=== PATIENT | female | born 1950 | race Caucasian/White ===

== ENCOUNTER 2019-08-08 11:02 | Emergency (ER) | payer MEDICARE ==
[~2019-08-08] VITALS: Ht 160 cm; Wt 76.8 kg
[~2019-08-08 11:02] MED LIST: DILT180C53 PO; INSU100I31 SUBCUT; LOSA100T57 PO; PIOG15TA8 PO; ROSU5TAB12 PO
[2019-08-08] MEDS ORDERED: wheelchair (12:55)
[2019-08-08] MEDS ORDERED: HYDR-3965 PO (12:55)
[2019-08-08] MEDS ORDERED: SENN-162 PO (12:55)
[2019-08-08] MEDS ORDERED: COMMODE (12:55)
[2019-08-08 13:25] VITALS: BP 182/87
[2019-08-09] MEDS ORDERED: HYDR-4383 PO (11:20)
[2019-08-09] MEDS ORDERED: SENN-162 PO (11:20)
[2019-08-10] MEDS ORDERED: ROSU20TA31 PO (11:09)
[2019-08-10] MEDS ORDERED: PIOG45TA65 PO (11:09)
== END 2019-08-08 13:26 | disposition home or self-care (01) ==
LOC: ER 11:03
DX: S82.841A Displaced bimalleolar fracture of right lower leg, initial encounter for closed fracture (principal); E11.9 Type 2 diabetes mellitus without complications; I25.10 Atherosclerotic heart disease of native coronary artery without angina pectoris; G62.9 Polyneuropathy, unspecified; Z88.0 Allergy status to penicillin; Z79.4 Long term (current) use of insulin; Z79.899 Other long term (current) drug therapy; W01.0XXA Fall on same level from slipping, tripping and stumbling without subsequent striking against object, initial encounter; Y93.89 Activity, other specified; Y92.89 Other specified places as the place of occurrence of the external cause; Y99.8 Other external cause status
CPT/HCPCS: 29515; 70450; 73610; 99284

== ENCOUNTER 2019-08-13 09:47 | Inpatient (IN) | payer MEDICARE ==
[2019-08-13] VITALS (16 sets, daily range): BP systolic 122–185; BP diastolic 60–105
[~2019-08-13] VITALS: Ht 160 cm; Wt 76.5 kg
[~2019-08-13 09:47] MED LIST changes: +HYDR-4383 PO; -PIOG15TA8 PO; +PIOG45TA65 PO; +ROSU20TA31 PO; -ROSU5TAB12 PO; +SENN-162 PO
[2019-08-13] MEDS ORDERED: famotidine 20mg tablet PO ONE (10:30)
[2019-08-13] MEDS ORDERED: clindamycin-Cleocin 900mg/D5W 50 ML IV ONE (10:30)
[2019-08-13] MEDS ORDERED: ringers solution, lacted 1,000 ML IV SCH ×2 (10:30→13:00)
[2019-08-13] MEDS ORDERED: INSU100I31 SQ (10:33)
[2019-08-13 11:06] LABS: BASOPHILS # (AUTO) 0.1 X10'3 (0-0.2); BASOPHILS % (AUTO) 0.6 % (0-1); EOSINOPHILS # (AUTO) 0.1 X10'3 (0-0.9); EOSINOPHILS % (AUTO) 1.4 % (0-6); LYMPHOCYTES # (AUTO) 1.5 X10'3 (1.1-4.8); LYMPHOCYTES % (AUTO) 17.3 % (21-51); MEAN CORPUSCULAR HEMOGLOBIN 28.4 PG (27.0-31.0); MEAN CORPUSCULAR HGB CONC 33.3 g/dL (33.0-36.5); MEAN CORPUSCULAR VOLUME 85.2 FL (78-98); MEAN PLATELET VOLUME 7.5 FL (7.4-10.4); MONOCYTES # (AUTO) 0.9 X10'3 (0-0.9); MONOCYTES % (AUTO) 10.1 % (2-12); NEUTROPHILS # (AUTO) 6.1 X10'3 (1.8-7.7); NEUTROPHILS % (AUTO) 70.6 % (42-75); PRE OP HEMATOCRIT 30.7 % (35.0-45.0); PRE OP PLATELET COUNT 323 X10'3 (140-440); RED CELL DISTRIBUTION WIDTH 14.2 % (11.5-14.5)
[2019-08-13 11:08] LABS: PRE OP HEMOGLOBIN 10.2 g/dL (12.0-16.0)
[2019-08-13 11:21] LABS: ALBUMIN 2.6 G/DL (3.4-5.0); ALBUMIN/GLOBULIN RATIO 0.5 (1.1-1.5); ALKALINE PHOSPHATASE 89 IU/L (46-116); BLOOD UREA NITROGEN 44 MG/DL (7-18); BUN/CREATININE RATIO 13.2 (6.6-38.0); CALCIUM 9.6 MG/DL (8.5-10.1); CHLORIDE 100 MMOL/L (99-107); CREATININE 3.33 MG/DL (0.40-0.90); PRE OP ALT 19 U/L (30-65); PRE OP ANION GAP 12 (8-16); PRE OP AST 15 U/L (10-37); PRE OP BILIRUB, TOTAL 0.4 MG/DL (0.0-1.0); PRE OP GLUCOSE 130 MG/DL (70-104); PRE OP PROTIME 10.3 SECONDS (9.0-12.0); PRE OP SODIUM 135 MMOL/L (135-145); TOTAL PROTEIN 8.1 G/DL (6.4-8.2); eGFR 14 ML/MIN
[2019-08-13] MEDS ORDERED: MIDAZolam 1mg/ml 10ml vial ONE (12:17)
[2019-08-13] MEDS ORDERED: fentaNYL/PF 50MCG/1 ML 2ML syringe ONE (12:18)
[2019-08-13] MEDS ORDERED: morphine 4 MG/ML inj SYRINge IV PRN ×2 (13:00)
[2019-08-13] MEDS ORDERED: labetalol 20mg/4ml (5mg/ml) syringe IV PRN (13:00)
[2019-08-13] MEDS ORDERED: hydrALAZINE 20mg/ml inj. IV PRN (13:00)
[2019-08-13] MEDS ORDERED: ondansetron/PF 4mg/2ml inj IV PRN (13:00)
[2019-08-13] MEDS ORDERED: fentaNYL/PF 50MCG/1 ML 2ML syringe IV PRN ×2 (13:00)
[2019-08-13] MEDS ORDERED: BUPIVAcaine/PF 2.5 mg/ml (0.25%) 30ml vial ONE (13:15)
[2019-08-13] MEDS ORDERED: morphine 10mg/ml inj. ONE (14:42)
--- NOTE | 2019-08-13 15:10 | NUR ---
Received from OR via BED, accompanied by Anesthesiologist DR BERNAL and report given by Anesthesiolgist. PATIENT A&OX4, DENIES PAIN, V/S WNL, NEUROVASCULAR CHECKS INTACT, 20G PIV TO RUE, SCD ON, RIGHT ANKLE SPLINT DRESSING CDI, F/C DRAINING CLEAR YELLOW URINE.
[2019-08-13] MEDS ORDERED: bisacodyl 10mg suppository rectal RC PRN (15:25)
[2019-08-13] MEDS ORDERED: HYDROmorphone inj. 0.5 MG/0.5 ML DISP.SYRIN IV PRN (15:25)
[2019-08-13] MEDS ORDERED: HYDROcodone/acetaminophen 10/325mg tab PO PRN (15:25)
[2019-08-13] MEDS ORDERED: diphenhydrAMINE 25mg capsule PO PRN ×2 (15:25)
[2019-08-13] MEDS ORDERED: magnesium hydroxide 30ml (MOM) UD suspension PO PRN (15:25)
[2019-08-13] MEDS ORDERED: acetaminophen 325mg tablet PO PRN (15:25)
[2019-08-13] MEDS ORDERED: dextrose ORAL solution 15 GM/59 ML bottle PO PRN ×2 (15:30)
[2019-08-13] MEDS ORDERED: dextrose 50%-water 50ml dispensing syringe IV PRN ×2 (15:30)
[2019-08-13] MEDS ORDERED: insulin Lispro (HumaLOG) vial - multi-dose SQ SCH (15:30)
[2019-08-13] MEDS ORDERED: glucagon, human recombinant 1mg kit SUBCUT PRN (15:30)
[2019-08-13] MEDS ORDERED: MESSAGE TO PHARMACY PO ONE (15:30)
--- NOTE | 2019-08-13 15:30 | NUR ---
received report from zach miller, in recovery
--- NOTE | 2019-08-13 16:10 | NUR ---
PATIENT A&OX4, DENIES PAIN, V/S WNL, NEUROVASCULAR CHECKS INTACT, 20G PIV TO RUE, SCD ON, RIGHT ANKLE SPLINT DRESSING CDI, F/C DRAINING CLEAR YELLOW URINE. PATIENT IS WIGGLING TOES NOW.. PATIENT TRANSFERED TO ORTHO WITH ALL BELONGINGS AND HOOKED UP TO MONITORS IN ROOM AND REPORT GIVEN TO AUTOMATIC COIL MACHINE OPERATOR WHO HAS TAKEN OVER PATIENT CARE.
--- NOTE | 2019-08-13 16:10 | NUR ---
pt arrived on floor awake in ortho bed
[2019-08-13] MEDS: ondansetron/PF 4mg/2ml inj IV PRN (17:33)
--- NOTE | 2019-08-13 18:31 | NUR ---
gave report to paul rojas
[2019-08-13] MEDS: clindamycin 600mg/D5W 50ml 50 ML IV SCH (20:22)
[2019-08-13] MEDS: sennosides 8.6mg tablet PO SCH (20:23)
[2019-08-13] MEDS: potassium Cl 20mEq in NS 1,000 ML IV SCH (20:24)
[2019-08-13] MEDS: HYDROcodone/acetaminophen 10/325mg tab PO PRN (20:25)
[2019-08-13] MEDS: insulin glargine (Lantus) pen - multi-dose SQ SCH (21:00)
[2019-08-13] MEDS ORDERED: sennosides 8.6mg tablet PO SCH (21:00)
[2019-08-14] VITALS (7 sets, daily range): BP systolic 123–175; BP diastolic 56–79
[2019-08-14] MEDS: HYDROcodone/acetaminophen 10/325mg tab PO PRN ×2 (02:08→05:46)
[2019-08-14] MEDS: clindamycin 600mg/D5W 50ml 50 ML IV SCH (02:09)
--- NOTE | 2019-08-14 06:25 | NUR ---
Problems reprioritized. Patient report given, questions answered & plan of care reviewed with DAVID.[email or web address].
--- NOTE | 2019-08-14 06:49 | NUR ---
Patient in room ORTHO 4012. I have received report from Gabriela OWENS and had the opportunity to ask questions and assume patient care.
[2019-08-14] MEDS: losartan 50mg tablet PO SCH (07:37)
[2019-08-14] MEDS: potassium Cl 20mEq in NS 1,000 ML IV SCH ×3 (07:38→21:57)
[2019-08-14] MEDS: diltiazem CD 180mg cap (once-daily) PO SCH (09:19)
--- NOTE | 2019-08-14 12:11 | NUR ---
DM/Joint replacement consult: Pt s/p R ankle fx repair hx DM A1C 8.0. Pt unable to wake during RD visit; written DM and high protein eds along w/ RD contact information left at bedside. PO pending on carb controlled diet post-op. LBM 08/12. Pt appears well-nourished. Will continue to monitor for additional protein needs post-op. Rec: 1. continue carb controlled diet 2. monitor for ONS needs 3. MVI for wound healing per MD approval 4. wt per rx Addendum: 08/14/19 at [address] Amended: Links added.
--- NOTE | 2019-08-14 18:25 | NUR ---
Problems reprioritized. Patient report given, questions answered & plan of care reviewed with Ashley OWENS.
[2019-08-14] MEDS: sennosides 8.6mg tablet PO SCH (20:17)
[2019-08-14] MEDS: insulin glargine (Lantus) pen - multi-dose SQ SCH (21:00)
[2019-08-14] MEDS: acetaminophen 325mg tablet PO PRN (22:42)
--- NOTE | 2019-08-15 03:41 | NUR ---
i heard pt scream. pt c/o pain. when pt was asked where the pain was, she said right leg and then left leg the next time. she kept changing. and also c/o numbness of bilat legs then soon after c/o bilat arms. pt moves all four extremeties (slow) and no sensation defecit found. repositioned pt and pain subsided. then pt started crying for her sister. i called her sister Megha and transferred phone call to pt.
[2019-08-15] MEDS ORDERED: traMADol 50MG tablet PO PRN (04:40)
[2019-08-15] MEDS: acetaminophen 325mg tablet PO PRN (04:49)
[2019-08-15 06:00] VITALS: BP 165/67
[2019-08-15 06:11] LABS: BASOPHILS # (AUTO) 0.1 X10'3 (0-0.2); BASOPHILS % (AUTO) 1.1 % (0-1); EOSINOPHILS # (AUTO) 0.1 X10'3 (0-0.9); HEMATOCRIT 24.6 % (35.0-45.0); HEMOGLOBIN 8.3 g/dl (12.0-16.0); LYMPHOCYTES # (AUTO) 1.1 X10'3 (1.1-4.8); LYMPHOCYTES % (AUTO) 10.1 % (21-51); MEAN CORPUSCULAR HEMOGLOBIN 28.8 PG (27.0-31.0); MEAN CORPUSCULAR HGB CONC 33.7 g/dL (33.0-36.5); MEAN CORPUSCULAR VOLUME 85.3 FL (78-98); MEAN PLATELET VOLUME 7.5 FL (7.4-10.4); MONOCYTES # (AUTO) 1.3 X10'3 (0-0.9); MONOCYTES % (AUTO) 12.5 % (2-12); NEUTROPHILS # (AUTO) 8.1 X10'3 (1.8-7.7); NEUTROPHILS % (AUTO) 75.3 % (42-75); PLATELET COUNT 293 X10'3 (140-440); RED BLOOD COUNT 2.88 X10'6 (4.20-5.60); RED CELL DISTRIBUTION WIDTH 13.9 % (11.5-14.5); WHITE BLOOD COUNT 10.7 X10'3 (4.5-11.0)
--- NOTE | 2019-08-15 06:18 | NUR ---
Problems reprioritized. Patient report given, questions answered & plan of care reviewed with GRACIELA MCGRATH.
--- NOTE | 2019-08-15 06:19 | NUR ---
Patient in room ORTHO 4012. I have received report from Ashley OWENS and had the opportunity to ask questions and assume patient care.
[2019-08-15 06:30] VITALS: BP 170/70
[2019-08-15 06:33] LABS: ALANINE AMINOTRANSFERASE 19 U/L (12-78); ALBUMIN 1.9 G/DL (3.4-5.0); ALBUMIN/GLOBULIN RATIO 0.4 (1.1-1.5); ALKALINE PHOSPHATASE 85 IU/L (46-116); ANION GAP 15 (8-16); ASPARTATE AMINO TRANSFERASE 18 U/L (10-37); BILIRUBIN,TOTAL 0.4 MG/DL (0.1-1.0); BLOOD UREA NITROGEN 43 MG/DL (7-18); CHLORIDE 103 MMOL/L (99-107); CREATININE 3.32 MG/DL (0.40-0.90); GLUCOSE 126 MG/DL (70-104); POTASSIUM 5.4 MMOL/L (3.5-5.1); SODIUM 136 MMOL/L (135-145); TOTAL CARBON DIOXIDE 18.3 MMOL/L (24-32); TOTAL PROTEIN 6.8 G/DL (6.4-8.2); eGFR 14 ML/MIN
[2019-08-15 06:58] VITALS: BP 182/79
[2019-08-15] MEDS: diltiazem CD 180mg cap (once-daily) PO SCH (07:09)
[2019-08-15] MEDS: losartan 50mg tablet PO SCH (07:10)
[2019-08-15 10:00] VITALS: BP 141/56
[2019-08-15] MEDS: potassium Cl 20mEq in NS 1,000 ML IV SCH (11:14)
--- NOTE | 2019-08-15 17:14 | NUR ---
Nutrition consult "low albumin": Pt/SO seen by PAUL for verbal high protein ed reinforcement. Pt ALOC not full able to respond to questions. Pt does agree to tuna salad sandwich at lunch tomorrow, [place] [place] yogurt BIDLD, chopped meats w/ gravy; dietary notified. Addendum: 08/15/19 at [address] Amended: Links added.
[2019-08-15 18:00] VITALS: BP 173/78
--- NOTE | 2019-08-15 18:26 | NUR ---
Problems reprioritized. Patient report given, questions answered & plan of care reviewed with Prasanth OWENS.
[2019-08-15] MEDS: sennosides 8.6mg tablet PO SCH (19:45)
[2019-08-15] MEDS: insulin glargine (Lantus) pen - multi-dose SQ SCH (21:00)
[2019-08-15 22:00] VITALS: BP 156/69
--- NOTE | 2019-08-15 22:50 | NUR ---
pt has random essential tremors, family reports this is not normal for patient. tremors are not all the time, but per family she is "jumping" while she's sleeping. patient unable to dictate if normal or not. no sxs distress. will continue to monitor. pt has flat affect, doesn't make eye contact. answers all questions appropriately. Addendum: 08/15/19 at 2303 by Arnold Mejia RN Amended: Links added.
--- NOTE | 2019-08-16 05:53 | NUR ---
Jael (sister) ok to have info. correct cell number [phone]. answered questions about plan for discharge possibilities. family requests [facility] as first choice and [facility] SN[facility].
--- NOTE | 2019-08-16 06:38 | NUR ---
reported to days. noted pt sister anticipates discharge to rehab today
[2019-08-16 07:39] LABS: HEMATOCRIT 26.4 % (35.0-45.0); HEMOGLOBIN 8.7 g/dl (12.0-16.0); MEAN CORPUSCULAR HEMOGLOBIN 28.2 PG (27.0-31.0); MEAN CORPUSCULAR HGB CONC 33.1 g/dL (33.0-36.5); MEAN CORPUSCULAR VOLUME 85.3 FL (78-98); MEAN PLATELET VOLUME 7.2 FL (7.4-10.4); PLATELET COUNT 336 X10'3 (140-440); RED BLOOD COUNT 3.09 X10'6 (4.20-5.60); RED CELL DISTRIBUTION WIDTH 14.3 % (11.5-14.5); WHITE BLOOD COUNT 9.7 X10'3 (4.5-11.0)
[2019-08-16 07:54] LABS: ANION GAP 12 (8-16); BLOOD UREA NITROGEN 43 MG/DL (7-18); BUN/CREATININE RATIO 13.8 (6.6-38.0); CALCIUM 9.3 MG/DL (8.5-10.1); CHLORIDE 105 MMOL/L (99-107); CREATININE 3.12 MG/DL (0.40-0.90); GLUCOSE 114 MG/DL (70-104); POTASSIUM 4.7 MMOL/L (3.5-5.1); SODIUM 137 MMOL/L (135-145); TOTAL CARBON DIOXIDE 19.9 MMOL/L (24-32); eGFR 15 ML/MIN
[2019-08-16 07:55] LABS: ALANINE AMINOTRANSFERASE 25 U/L (12-78); ALBUMIN 1.9 G/DL (3.4-5.0); ALBUMIN/GLOBULIN RATIO 0.4 (1.1-1.5); ALKALINE PHOSPHATASE 122 IU/L (46-116); ASPARTATE AMINO TRANSFERASE 25 U/L (10-37); BILIRUBIN,TOTAL 0.3 MG/DL (0.1-1.0); TOTAL PROTEIN 6.9 G/DL (6.4-8.2)
[2019-08-16] MEDS: diltiazem CD 180mg cap (once-daily) PO SCH (08:13)
[2019-08-16] MEDS: acetaminophen 325mg tablet PO PRN (08:14)
[2019-08-16] MEDS: losartan 50mg tablet PO SCH (08:14)
[2019-08-16 10:00] VITALS: BP 169/73
--- NOTE | 2019-08-16 11:27 | NUR ---
Patient in room ORTHO 4012. I have received report from Caitlin OWENS and had the opportunity to ask questions and assume patient care.
--- NOTE | 2019-08-16 11:27 | NUR ---
Problems reprioritized. Patient report given, questions answered & plan of care reviewed with GRACIELA Jones.
[2019-08-16] MEDS: ondansetron/PF 4mg/2ml inj IV PRN (13:55)
--- NOTE | 2019-08-16 15:30 | NUR ---
Called report to [facility], IV taken out patient tolerated well. NWB steady to the wheelchair.
== END 2019-08-16 16:05 | DRG 493 ==
LOC: PAS 09:47 → ORTHO 4S 16:57
PROVIDERS: ADMIT Orthopaedic Surgery; ATTEND Orthopaedic Surgery
PROC: 0QSG04Z Reposition Right Tibia with Internal Fixation Device, Open Approach (ICD-10-PCS; 2019-08-13)
PROC: 0QSJ04Z Reposition Right Fibula with Internal Fixation Device, Open Approach (ICD-10-PCS; principal; 2019-08-13 12:10)
DX: S82.841A Displaced bimalleolar fracture of right lower leg, initial encounter for closed fracture (principal); D62 Acute posthemorrhagic anemia; N18.4 Chronic kidney disease, stage 4 (severe); M81.0 Age-related osteoporosis without current pathological fracture; I12.9 Hypertensive chronic kidney disease with stage 1 through stage 4 chronic kidney disease, or unspecified chronic kidney disease; E11.22 Type 2 diabetes mellitus with diabetic chronic kidney disease; E66.9 Obesity, unspecified; X58.XXXA Exposure to other specified factors, initial encounter; M32.9 Systemic lupus erythematosus, unspecified; I25.10 Atherosclerotic heart disease of native coronary artery without angina pectoris; E11.42 Type 2 diabetes mellitus with diabetic polyneuropathy; E78.5 Hyperlipidemia, unspecified; Z90.49 Acquired absence of other specified parts of digestive tract; Z88.0 Allergy status to penicillin; Z68.29 Body mass index [BMI] 29.0-29.9, adult; Z79.899 Other long term (current) drug therapy; Y93.89 Activity, other specified; Y92.89 Other specified places as the place of occurrence of the external cause; Y99.8 Other external cause status
CPT/HCPCS: 36415; 80053; 82948; 83036; 85025; 85027; 85610; 85730; 93005; 97161; 97530; 97535; A4215; A6223; A6449; A7000; C1713; C1758; G0378; J1815; J2250; J2270; J2405; J3010; J3480; J3490; J7120; Q0163

== ENCOUNTER 2021-02-25 17:10 | Emergency (ER) | payer MEDICARE ==
[~2021-02-25] VITALS: Ht 160 cm; Wt 64.1 kg
[~2021-02-25 17:10] MED LIST changes: -DILT180C53 PO; +DILT240C51 PO; +DOXA2TAB13 PO; +HYDR-4069 PO; -HYDR-4383 PO; +INSU100I31 SQ; -INSU100I31 SUBCUT; +LABE200T5 PO; -LOSA100T57 PO; +NOR5T PO; -PIOG45TA65 PO; -ROSU20TA31 PO; +ROSU40TA22 PO; -SENN-162 PO
[2021-02-25] MEDS ORDERED: ondansetron/PF 4mg/2ml inj IV ONE (17:30)
[2021-02-25] MEDS ORDERED: morphine 4 MG/ML inj SYRINge IV PRN (17:30)
[2021-02-25 17:49] LABS: BASOPHILS # (AUTO) 0.1 X10'3 (0-0.2); BASOPHILS % (AUTO) 1.2 % (0-1); EOSINOPHILS # (AUTO) 0.2 X10'3 (0-0.9); EOSINOPHILS % (AUTO) 2.2 % (0-6); HEMATOCRIT 33.2 % (35.0-45.0); HEMOGLOBIN 11.4 g/dl (12.0-16.0); LYMPHOCYTES # (AUTO) 2.3 X10'3 (1.1-4.8); LYMPHOCYTES % (AUTO) 30.3 % (21-51); MEAN CORPUSCULAR HEMOGLOBIN 30.1 PG (27.0-31.0); MEAN CORPUSCULAR HGB CONC 34.2 g/dL (33.0-36.5); MEAN PLATELET VOLUME 7.5 FL (7.4-10.4); MONOCYTES # (AUTO) 0.5 X10'3 (0-0.9); MONOCYTES % (AUTO) 6.8 % (2-12); NEUTROPHILS # (AUTO) 4.6 X10'3 (1.8-7.7); NEUTROPHILS % (AUTO) 59.5 % (42-75); PLATELET COUNT 275 X10'3 (140-440); RED BLOOD COUNT 3.77 X10'6 (4.20-5.60); RED CELL DISTRIBUTION WIDTH 14.4 % (11.5-14.5); WHITE BLOOD COUNT 7.7 X10'3 (4.5-11.0)
[2021-02-25 18:18] LABS: ALANINE AMINOTRANSFERASE 70 U/L (12-78); ALBUMIN 2.7 G/DL (3.4-5.0); ALBUMIN/GLOBULIN RATIO 0.6 (1.1-1.5); ALKALINE PHOSPHATASE 94 IU/L (46-116); ANION GAP 13 (8-16); ASPARTATE AMINO TRANSFERASE 47 U/L (10-37); BILIRUBIN,TOTAL 0.6 MG/DL (0.1-1.0); BLOOD UREA NITROGEN 45 MG/DL (7-18); BUN/CREATININE RATIO 6.7 (6.6-38.0); CALCIUM 9.2 MG/DL (8.5-10.1); CHLORIDE 97 MMOL/L (99-107); CREATININE 6.71 MG/DL (0.40-0.90); GLUCOSE 196 MG/DL (70-104); LIPASE 508 U/L (73-393); POTASSIUM 3.2 MMOL/L (3.5-5.1); SODIUM 134 MMOL/L (135-145); TOTAL CARBON DIOXIDE 23.7 MMOL/L (24-32); TOTAL PROTEIN 7.2 G/DL (6.4-8.2); TROPONIN I < 0.04 NG/ML (0.0-0.05); eGFR 6 ML/MIN
[2021-02-25 18:48] LABS: CLARITY,URINE SLIGHTLY CLOUDY (Clear); COLOR,URINE YELLOW (Yellow); GLUCOSE, URINE 500 mg/dl (Neg); KETONES,URINE NEGATIVE (Neg); LEUKOCYTE ESTERASE ,URINE NEGATIVE (Neg); NITRITES, URINE NEGATIVE (Neg); OCCULT BLOOD,URINE TRACE-INTACT (Neg); PH,URINE 7.5 (4.8-8.0); PROTEIN,URINE >=300 mg/dl (Neg); UROBILINOGEN,URINE 0.2 E.U/dL (0.2-1.0)
[2021-02-25] MEDS ORDERED: hydrALAZINE 20mg/ml inj. IV ONE (18:50)
[2021-02-25 18:57] LABS: UA COLLECTION TYPE CLN CATCH MIDSTREAM
[2021-02-25 18:58] LABS: WBC,URINE 0-4 /HPF (0-4)
[2021-02-25 18:59] LABS: RBC,URINE 0-2 /HPF (0-2); SQUAMOUS EPITHELIAL CELL,UR MANY /LPF (FEW)
[2021-02-25 19:00] LABS: MUCUS STRANDS FEW /LPF (Neg); TRANSITIONAL EPI CELLS,URINE FEW /HPF
[2021-02-25 19:01] LABS: BACTERIA,URINE FEW /HPF (Neg)
[2021-02-25] MEDS ORDERED: potassium Cl 20 mEq SR tablet PO STA (19:30)
[2021-02-25 19:47] VITALS: BP 183/83
== END 2021-02-25 19:48 | disposition home or self-care (01) ==
LOC: ER 17:10
DX: R10.84 Generalized abdominal pain (principal); E87.6 Hypokalemia; K21.9 Gastro-esophageal reflux disease without esophagitis; E11.42 Type 2 diabetes mellitus with diabetic polyneuropathy; I12.0 Hypertensive chronic kidney disease with stage 5 chronic kidney disease or end stage renal disease; E11.22 Type 2 diabetes mellitus with diabetic chronic kidney disease; N18.6 End stage renal disease; Z88.0 Allergy status to penicillin; Z79.4 Long term (current) use of insulin; Z79.899 Other long term (current) drug therapy
CPT/HCPCS: 36415; 74176; 80053; 81001; 83605; 83690; 84145; 84484; 85025; 87040; 93005; 96374; 96375; 99285; J0360; J2270; J2405

== ENCOUNTER 2021-06-04 09:14 | Emergency (ER) | payer MEDICARE ==
[~2021-06-04] VITALS: Ht 157.5 cm; Wt 63.6 kg
[2021-06-04 09:44] LABS: BASOPHILS # (AUTO) 0.1 X10'3 (0-0.2); EOSINOPHILS # (AUTO) 0.2 X10'3 (0-0.9); HEMATOCRIT 32.7 % (35.0-45.0); HEMOGLOBIN 11.5 g/dl (12.0-16.0); LYMPHOCYTES # (AUTO) 1.7 X10'3 (1.1-4.8); LYMPHOCYTES % (AUTO) 21.2 % (21-51); MEAN CORPUSCULAR HEMOGLOBIN 31.6 PG (27.0-31.0); MEAN CORPUSCULAR HGB CONC 35.1 g/dL (33.0-36.5); MEAN CORPUSCULAR VOLUME 90.1 FL (78-98); MONOCYTES # (AUTO) 0.6 X10'3 (0-0.9); MONOCYTES % (AUTO) 7.8 % (2-12); NEUTROPHILS # (AUTO) 5.5 X10'3 (1.8-7.7); PLATELET COUNT 297 X10'3 (140-440); RED BLOOD COUNT 3.63 X10'6 (4.20-5.60); RED CELL DISTRIBUTION WIDTH 13.3 % (11.5-14.5); WHITE BLOOD COUNT 8.1 X10'3 (4.5-11.0)
[2021-06-04 10:08] LABS: ALANINE AMINOTRANSFERASE 21 U/L (12-78); ALBUMIN 2.8 G/DL (3.4-5.0); ALBUMIN/GLOBULIN RATIO 0.7 (1.1-1.5); ALKALINE PHOSPHATASE 81 IU/L (46-116); ANION GAP 12 (8-16); ASPARTATE AMINO TRANSFERASE 16 U/L (10-37); BILIRUBIN,TOTAL 0.4 MG/DL (0.1-1.0); BLOOD UREA NITROGEN 44 MG/DL (7-18); BUN/CREATININE RATIO 6.8 (6.6-38.0); CALCIUM 9.2 MG/DL (8.5-10.1); CHLORIDE 100 MMOL/L (99-107); CREATININE 6.49 MG/DL (0.40-0.90); GLUCOSE 118 MG/DL (70-104); MAGNESIUM 2.1 MG/DL (1.5-2.4); SODIUM 138 MMOL/L (135-145); TOTAL CARBON DIOXIDE 25.8 MMOL/L (24-32); eGFR 6 ML/MIN
[2021-06-04 10:38] LABS: POTASSIUM 2.7 MMOL/L (3.5-5.1)
[2021-06-04] MEDS ORDERED: potassium Cl 20 mEq SR tablet PO ONE (10:45)
[2021-06-04] MEDS ORDERED: POTA10TA19 PO (11:13)
[2021-06-04 11:44] VITALS: BP 210/97
== END 2021-06-04 11:36 | disposition home or self-care (01) ==
LOC: ER 09:14
DX: E87.6 Hypokalemia (principal); R53.1 Weakness; R55 Syncope and collapse; R42 Dizziness and giddiness; I12.0 Hypertensive chronic kidney disease with stage 5 chronic kidney disease or end stage renal disease; E11.22 Type 2 diabetes mellitus with diabetic chronic kidney disease; N18.6 End stage renal disease; K21.9 Gastro-esophageal reflux disease without esophagitis; E11.42 Type 2 diabetes mellitus with diabetic polyneuropathy; Z99.2 Dependence on renal dialysis; Z88.0 Allergy status to penicillin; Z79.4 Long term (current) use of insulin; Z79.899 Other long term (current) drug therapy
CPT/HCPCS: 36415; 71045; 80053; 83735; 83880; 84484; 85025; 93005; 99285

== ENCOUNTER 2021-07-22 08:23 | Day surgery (SDC) | payer OTHER ==
[~2021-07-22] VITALS: Ht 157.5 cm; Wt 63.5 kg
[2021-07-22] VITALS (8 sets, daily range): BP systolic 134–156; BP diastolic 54–67
[~2021-07-22 08:23] MED LIST changes: +AMIT10TA6 PO; +ATOR20TA66 PO; +CLON0.1T2 PO; +CLOP75TA34 PO; -DILT240C51 PO; +DOCU100C40 PO; -DOXA2TAB13 PO; +FOLI0.8T19 PO; -HYDR-4069 PO; -INSU100I31 SQ; -LABE200T5 PO; +METO-395 PO; +METO5TAB85 PO; +PANT40TA54 PO; +POTA10TA36 PO; -ROSU40TA22 PO; +TRAM50TA2 PO; +polyethylene glycol 3350 pkt PO
[2021-07-22] MEDS ORDERED: normal saline 1000ml 1,000 ML IV PRN (08:35)
[2021-07-22] MEDS ORDERED: DOCU-342 PO (08:37)
[2021-07-22] MEDS ORDERED: METR-159 PO (08:37)
[2021-07-22] MEDS ORDERED: ASPI-1265 PO (08:37)
[2021-07-22] MEDS ORDERED: AMLO5TAB16 PO (08:37)
[2021-07-22] MEDS ORDERED: PHEN20SP2 PO (08:43)
[2021-07-22] MEDS ORDERED: GABA100C PO (08:43)
[2021-07-22] MEDS ORDERED: CLOP75TA15 PO (08:43)
[2021-07-22] MEDS ORDERED: BENZ1LOZ61 PO (08:43)
[2021-07-22] MEDS ORDERED: HEPARIN SUBCUT (08:43)
[2021-07-22] MEDS ORDERED: POLY17PO10 PO (08:43)
[2021-07-22] MEDS ORDERED: ACET-890 PO (08:48)
[2021-07-22] MEDS ORDERED: BACI1TAB2 (08:48)
[2021-07-22] MEDS ORDERED: INSU100C10 SQ (08:48)
[2021-07-22] MEDS ORDERED: PRE5T PO (08:48)
[2021-07-22] MEDS ORDERED: INSU100V9 SQ (08:48)
[2021-07-22] MEDS ORDERED: PANT-47 PO (08:48)
[2021-07-22] MEDS ORDERED: heparin 1,000unit/ml 10ml vial 10 ML ONE (09:02)
[2021-07-22] MEDS ORDERED: LIDOcaine 1%/PF 5ML 10 MG/ML VIAL ONE (09:02)
[2021-07-22] MEDS ORDERED: fentaNYL/PF 50MCG/1 ML 2ML syringe ONE (09:02)
[2021-07-22] MEDS ORDERED: midazolam 1 mg/ML 2ml injection ONE (09:02)
[2021-07-22 09:23] LABS: ALBUMIN 1.8 G/DL (3.4-5.0); ANION GAP 10 (8-16); BLOOD UREA NITROGEN 20 MG/DL (7-18); CALCIUM 8.2 MG/DL (8.5-10.1); CHLORIDE 103 MMOL/L (99-107); CREATININE 6.68 MG/DL (0.40-0.90); GLUCOSE 144 MG/DL (70-104); POTASSIUM 3.6 MMOL/L (3.5-5.1); SODIUM 141 MMOL/L (135-145); TOTAL CARBON DIOXIDE 27.7 MMOL/L (24-32); eGFR 6 ML/MIN
== END 2021-07-22 12:40 ==
LOC: SSTAY O 08:23
PROVIDERS: ATTEND Radiology Diagnostic Radiology
DX: E11.22 Type 2 diabetes mellitus with diabetic chronic kidney disease (principal); I12.0 Hypertensive chronic kidney disease with stage 5 chronic kidney disease or end stage renal disease; N18.6 End stage renal disease; Z88.0 Allergy status to penicillin; Z79.4 Long term (current) use of insulin; Z79.899 Other long term (current) drug therapy; Z79.82 Long term (current) use of aspirin; Z82.49 Family history of ischemic heart disease and other diseases of the circulatory system; Z83.3 Family history of diabetes mellitus
CPT/HCPCS: 36415; 36558; 76937; 77001; 80048; 99152; 99153; C1750; C1769; C1894; J1644; J2250; J3010; A9270

== ENCOUNTER 2021-07-30 12:34 | Emergency (ER) | payer OTHER, MEDICARE ==
[~2021-07-30] VITALS: Ht 157.5 cm; Wt 63.6 kg
[~2021-07-30 12:34] MED LIST changes: +ACET-890 PO; +AMLO5TAB16 PO; +ASPI-1265 PO; -ATOR20TA66 PO; +BACI1TAB2; +BENZ1LOZ61 PO; +CLOP75TA15 PO; -CLOP75TA34 PO; +DOCU-342 PO; -DOCU100C40 PO; +GABA100C PO; +HEPARIN SUBCUT; +INSU100C10 SQ; +INSU100V9 SQ; -METO-395 PO; -METO5TAB85 PO; +METR-159 PO; -NOR5T PO; +PANT-47 PO; -PANT40TA54 PO; +PHEN20SP2 PO; +POLY17PO10 PO; -POTA10TA36 PO; +PRE5T PO; -TRAM50TA2 PO; -polyethylene glycol 3350 pkt PO
--- NOTE | 2021-07-30 14:14 | NUR ---
PT YELLING IN ROOM SHE WANTS TO GO HOME BY AMBULANCE. PT AWAITING MD. PT WANTS TO CALL BUT CANNOT REMEMBER HIS NUMBER.
--- NOTE | 2021-07-30 14:18 | NUR ---
CALLED AND LEFT MESSAGE FOR , PT DAUGHTER IN CONTACT LIST. PT SPEAKING TO DAUGHTER NOW AND DEMANDING TO GO HOME.
[2021-07-30 14:55] LABS: BASOPHILS # (AUTO) 0.1 X10'3 (0-0.2); BASOPHILS % (AUTO) 1.1 % (0-1); EOSINOPHILS # (AUTO) 0.4 X10'3 (0-0.9); EOSINOPHILS % (AUTO) 3.3 % (0-6); HEMOGLOBIN 9.4 g/dl (12.0-16.0); LYMPHOCYTES # (AUTO) 2.4 X10'3 (1.1-4.8); LYMPHOCYTES % (AUTO) 20.5 % (21-51); MEAN CORPUSCULAR HEMOGLOBIN 30.7 PG (27.0-31.0); MEAN CORPUSCULAR HGB CONC 32.3 g/dL (33.0-36.5); MEAN CORPUSCULAR VOLUME 95.1 FL (78-98); MEAN PLATELET VOLUME 7.2 FL (7.4-10.4); MONOCYTES % (AUTO) 8.6 % (2-12); NEUTROPHILS # (AUTO) 7.9 X10'3 (1.8-7.7); NEUTROPHILS % (AUTO) 66.5 % (42-75); PLATELET COUNT 370 X10'3 (140-440); RED BLOOD COUNT 3.05 X10'6 (4.20-5.60); RED CELL DISTRIBUTION WIDTH 15.6 % (11.5-14.5); WHITE BLOOD COUNT 11.9 X10'3 (4.5-11.0)
--- NOTE | 2021-07-30 14:56 | NUR ---
Spoke with Gabriela at [facility], patient was not tolerating HD and needs to be transitioned back to PD, Dr. Easton aware of patient in ER, notified primary nurse
[2021-07-30 15:12] LABS: ALANINE AMINOTRANSFERASE 30 U/L (12-78); ALBUMIN 2.4 G/DL (3.4-5.0); ALBUMIN/GLOBULIN RATIO 0.5 (1.1-1.5); ALKALINE PHOSPHATASE 115 IU/L (46-116); ANION GAP 15 (8-16); ASPARTATE AMINO TRANSFERASE 24 U/L (10-37); BILIRUBIN,TOTAL 0.4 MG/DL (0.1-1.0); BLOOD UREA NITROGEN 32 MG/DL (7-18); BUN/CREATININE RATIO 5.3 (6.6-38.0); CALCIUM 8.6 MG/DL (8.5-10.1); CHLORIDE 101 MMOL/L (99-107); GLUCOSE 209 MG/DL (70-104); MAGNESIUM 2.1 MG/DL (1.5-2.4); PHOSPHORUS 3.8 MG/DL (2.3-4.5); POTASSIUM 3.3 MMOL/L (3.5-5.1); SODIUM 140 MMOL/L (135-145); TOTAL PROTEIN 7.3 G/DL (6.4-8.2); eGFR 7 ML/MIN
[2021-07-30] MEDS ORDERED: NOVLG SQ (15:16)
[2021-07-30] MEDS ORDERED: METO-395 PO (15:16)
[2021-07-30] MEDS ORDERED: ATOR-2 PO (15:16)
[2021-07-30] MEDS ORDERED: magnesium 4gm in 100ml NS 100 ML IV PRN (15:30)
[2021-07-30] MEDS ORDERED: magnesium Cl slow-release 64mg tablet PO PRN (15:30)
[2021-07-30] MEDS ORDERED: ondansetron/PF 4mg/2ml inj IV PRN (15:30)
[2021-07-30] MEDS ORDERED: magnesium 2GM in 50ml NS 50 ML IV PRN (15:30)
[2021-07-30] MEDS ORDERED: normal saline 1000ml 1,000 ML IV SCH (15:30)
[2021-07-30] MEDS ORDERED: potassium Cl 40MEQ/1/2NS 520ml 520 ML IV PRN ×2 (15:30)
[2021-07-30] MEDS ORDERED: potassium Cl 20 mEq SR tablet PO PRN ×2 (15:30)
[2021-07-30] MEDS ORDERED: acetaminophen 325mg tablet PO PRN ×2 (15:30)
--- NOTE | 2021-07-30 15:47 | NUR ---
AT BEDSIDE ASKING FOR PT TO HAVE FOOD FOR PT. WILL SEND MEAL ONCE DIET ORDERED.
--- NOTE | 2021-07-30 15:50 | NUR ---
FAXED FOR A RENAL DIET FOR PT NOW.
--- NOTE | 2021-07-30 16:42 | NUR ---
PT SCREAMING HELP IN ROOM. WHEN ASKED WHATS WRONG, PT SCREAMS I WANT FOOD. EDUCATED ABOUT FOOD IN THE ED. I FAXED AN ORDER DOWN FOR A RENAL DIET THAT HASNT ARRIVED. I WILL FAX AGAIN.
--- NOTE | 2021-07-30 17:15 | NUR ---
DR CARDONA SPOKE WITH PT AND STATED PT DOES NOT MEET CRITERIA FOR ADMISSION. PT AND AGREE THAT THE PT WANTS TO GO HOME. WENT HOME TO [facility] PT HOME W/C AND WILL BE BACK AROUND 1800. DR DIOP PAGED AND LET KNOW OF [facility] AND PT WISHES. STATED WILL REVIEW CHARTING FROM DR CARDONA AND CALL BACK ABOUT POC. ADVISED DR DIOP PT WILL WANT TO LEAVE AMA IF NO DISCHARGE ORDERED.
[2021-07-30 17:37] LABS: CLARITY,URINE CLOUDY (Clear); COLOR,URINE YELLOW (Yellow); GLUCOSE, URINE 500 mg/dl (Neg); KETONES,URINE NEGATIVE (Neg); LEUKOCYTE ESTERASE ,URINE MODERATE (Neg); NITRITES, URINE NEGATIVE (Neg); OCCULT BLOOD,URINE SMALL (Neg); PH,URINE 8.5 (4.8-8.0); PROTEIN,URINE >=300 mg/dl (Neg); UROBILINOGEN,URINE 0.2 E.U/dL (0.2-1.0)
[2021-07-30 17:54] LABS: UA COLLECTION TYPE FOLEY CATH
[2021-07-30 17:58] LABS: WBC,URINE TNTC /HPF (0-4)
[2021-07-30 17:59] LABS: BACTERIA,URINE 2+ /HPF (Neg); RBC,URINE 0-2 /HPF (0-2)
[2021-07-30 18:00] LABS: MUCUS STRANDS MODERATE /LPF (Neg); SQUAMOUS EPITHELIAL CELL,UR FEW /LPF (FEW); WBC CLUMPS,URINE MANY /HPF (NEGATIVE)
--- NOTE | 2021-07-30 18:09 | NUR ---
DC INSTRUCTIONS WRITTEN, DC PAPERWORK PRINTED OUT. AWAITING HUSBANDS ARRIVAL. PT DAUGHTER AT BEDSIDE.
[2021-07-30 18:38] VITALS: BP 139/111
--- NOTE | 2021-07-30 18:39 | NUR ---
patient acknowledged understanding of dc paperwork and to f/u with her mds. patient son-in-law and to take patient home. iv dc. patient dc home.
[2021-07-30] MEDS ORDERED: gabapentin 100mg capsule PO SCH (20:00)
[2021-07-30] MEDS ORDERED: heparin, porcine 5000 units/ml vial SQ SCH (20:00)
[2021-07-30] MEDS ORDERED: cloNIDine 0.1 mg tablet PO SCH (20:00)
[2021-07-30] MEDS ORDERED: K and/or MAG REPLACEMENT MC SCH (20:00)
[2021-07-30] MEDS ORDERED: amitriptyline 10mg tablet PO SCH (21:00)
[2021-07-31] MEDS ORDERED: pantoprazole 40mg Tablet.DR PO SCH (08:00)
[2021-07-31] MEDS ORDERED: folic acid/vitamin B complex w/vitamin C 0.8mg tablet PO SCH (08:00)
[2021-07-31] MEDS ORDERED: atorvastatin 20mg tablet PO SCH (08:00)
[2021-07-31] MEDS ORDERED: metoprolol succinate 25mg (24-HOUR) SR. Tablet PO SCH (08:00)
[2021-07-31] MEDS ORDERED: aspirin 81mg tab.chew PO SCH (08:00)
[2021-07-31] MEDS ORDERED: clopidogrel 75mg tablet PO SCH (08:00)
[2021-07-31] MEDS ORDERED: amLODIPine 5mg tablet PO SCH (08:00)
== END 2021-07-30 18:40 | disposition home or self-care (01) ==
LOC: ER 12:35
DX: I12.9 Hypertensive chronic kidney disease with stage 1 through stage 4 chronic kidney disease, or unspecified chronic kidney disease (principal); E11.22 Type 2 diabetes mellitus with diabetic chronic kidney disease; N18.9 Chronic kidney disease, unspecified; R53.1 Weakness; N39.0 Urinary tract infection, site not specified; K21.9 Gastro-esophageal reflux disease without esophagitis; Z88.0 Allergy status to penicillin; Z79.4 Long term (current) use of insulin; Z79.82 Long term (current) use of aspirin; Z79.899 Other long term (current) drug therapy
CPT/HCPCS: 36415; 71045; 80053; 81001; 83605; 83735; 84100; 84145; 85025; 87040; 87077; 87088; 93005; 99285